=== PATIENT | female | born 1950 | race Caucasian/White ===

== ENCOUNTER → 2018-04-10 | Outpatient (CLI) | payer MEDICARE, OTHER ==
[~2018-04-10] MED LIST: ALBU90I INH; ALBU90OI INH; ALBU90OI6 INH; ALBU90OI61 INH; AMLO10 PO; ATOR20 PO; Amaryl2 MG PO; CALPHO600 PO; DICL25ER PO; DIPH25 PO; ERGO50000 PO; FISH1000 PO; FLUT110OIA INH; FURO40 PO; GEMF600 PO; LOSHYD PO; METF500C PO; METO50 PO; MULVITA PO; Naprosyn375 MG PO; OMEP20ER PO; PHENTERMINE PO; POTCHL10ER PO; Percocet 5-3251 EACH PO; ULTRA-LIGHT RO1 EACH MC; [UNRECOGNIZED DRUG - CODE] PO; [UNRECOGNIZED DRUG - OTHER] PO
== END ==
LOC: LAB 11:37 → LAB SHORT 11:37
DX: E78.5 Hyperlipidemia, unspecified (principal); E11.42 Type 2 diabetes mellitus with diabetic polyneuropathy; R11.0 Nausea; I10 Essential (primary) hypertension
CPT/HCPCS: 84484

== ENCOUNTER → 2019-05-10 | Outpatient (CLI) | payer MEDICARE, OTHER | END | disposition home or self-care (01) | LOC: LAB SHORT 14:41 → LAB 14:41 | DX: N39.0 Urinary tract infection, site not specified (principal) | CPT/HCPCS: 87077; 87086; 87186 ==

== ENCOUNTER → 2020-03-30 | Outpatient (CLI) | payer MEDICARE, OTHER ==
[2020-03-30 15:13] LABS: Alanine Aminotransfer (ALT/SGP 46 U/L (12-78); Albumin, Blood 3.6 g/dL (3.4-5.0); Albumin/Globulin Ratio 1.2 (0.8-1.8); Alk Phos 73 U/L (50-136); Anion Gap 4 mmol/L (6-16); Aspartate Aminotrans (AST/SGOT 32 U/L (12-37); Bilirubin, Total 0.6 mg/dL (0.1-1.0); Blood Urea Nitrogen 36 mg/dL (8-24); CHOL/HDL RATIO 3.5; CO2, Blood 31 mmol/L (21-32); Calcium, Blood 9.5 mg/dL (8.5-10.1); Chloride, Blood 105 mmol/L (98-108); Cholesterol 156 mg/dL (50-200); Creatinine, Blood 1.06 mg/dL (0.40-1.00); Glomerular Filtration Rate 55 (60-); Glucose, Blood 104 mg/dL (70-99); HDL Cholesterol 45 mg/dL (>39); LDL/HDL RATIO 1.6; Low Density Lipoprotein Chol 73 mg/dL (0-110); Potassium, Blood 4.7 mmol/L (3.5-5.5); Sodium, Blood 140 mmol/L (136-145); Total Protein, Blood 6.6 g/dL (6.4-8.2); Triglycerides 189 mg/dL (30-160); Very Low Density Lipoprot Chol 37 mg/dL (6-32)
== END | disposition home or self-care (01) ==
LOC: LAB 13:35 → LAB SHORT 13:35
PROVIDERS: Hospitalist
DX: E78.5 Hyperlipidemia, unspecified (principal); I10 Essential (primary) hypertension; E11.42 Type 2 diabetes mellitus with diabetic polyneuropathy
CPT/HCPCS: 80053; 80061; 82043; 83036

== ENCOUNTER → 2021-03-16 | Outpatient (CLI) | payer MEDICARE, OTHER | END | disposition home or self-care (01) | LOC: LAB SHORT 13:49 → LAB 13:49 | DX: E11.42 Type 2 diabetes mellitus with diabetic polyneuropathy (principal) | CPT/HCPCS: 82043 ==

== ENCOUNTER → 2022-04-19 | Outpatient (CLI) | payer MEDICARE, OTHER | END | disposition home or self-care (01) | LOC: LAB 10:00 → LAB SHORT 10:00 | DX: E11.42 Type 2 diabetes mellitus with diabetic polyneuropathy (principal) | CPT/HCPCS: 82043 ==

== ENCOUNTER → 2022-11-03 | Outpatient (CLI) | payer MEDICARE, OTHER ==
[2022-11-03 16:15] LABS: Bun/Creatinine Ratio 52.5 (12.0-20.0); Calcium, Blood 10.2 mg/dL (8.5-10.1); Creatinine, Blood 0.76 mg/dL (0.40-1.00); Potassium, Blood 4.6 mmol/L (3.5-5.5)
== END | disposition home or self-care (01) ==
LOC: LAB SHORT 12:00
PROVIDERS: Hospitalist
DX: E53.8 Deficiency of other specified B group vitamins (principal); I10 Essential (primary) hypertension
CPT/HCPCS: 80048; 82607

== ENCOUNTER → 2023-05-25 | Outpatient (CLI) | payer MEDICARE, BC ==
[2023-05-25 17:09] LABS: Anion Gap 2 mmol/L (6-16); Blood Urea Nitrogen 36 mg/dL (8-24); CHOL/HDL RATIO 2.8; CO2, Blood 33 mmol/L (21-32); Calcium, Blood 9.8 mg/dL (8.5-10.1); Chloride, Blood 105 mmol/L (98-108); Cholesterol 164 mg/dL (50-200); Glomerular Filtration Rate 68 (60-); Glucose, Blood 109 mg/dL (70-99); HDL Cholesterol 59 mg/dL (>39); LDL/HDL RATIO 1.2; Low Density Lipoprotein Chol 71 mg/dL (0-110); Potassium, Blood 4.6 mmol/L (3.5-5.5); Sodium, Blood 140 mmol/L (136-145); Triglycerides 171 mg/dL (30-160); Very Low Density Lipoprot Chol 34 mg/dL (6-32)
[2023-05-25 18:36] LABS: Creatinine, Urine Random 99.6 mg/dL (27.00-270.00); Microalb/Creat Ratio UR, Rand 70.482 mg/g (0.000-30.000); Microalbumin, Random Urine 70.2 mg/L (0.000-20.000)
== END ==
LOC: LAB SHORT 12:15 → LAB 12:15
PROVIDERS: Hospitalist
DX: E78.5 Hyperlipidemia, unspecified (principal); E11.69 Type 2 diabetes mellitus with other specified complication
CPT/HCPCS: 80048; 80061; 82043; 82570

== ENCOUNTER → 2023-09-05 | Outpatient (CLI) | payer MEDICARE, BC | END | disposition home or self-care (01) | LOC: LAB 14:02 → LAB SHORT 14:02 | DX: R31.9 Hematuria, unspecified (principal) | CPT/HCPCS: 87077; 87086; 87186 ==

== ENCOUNTER → 2023-10-10 | Outpatient (CLI) | payer MEDICARE, BC | END | disposition home or self-care (01) | LOC: LAB 17:31 → LAB SHORT 17:31 | DX: R31.9 Hematuria, unspecified (principal) | CPT/HCPCS: 87086; 87102; 87106 ==

== ENCOUNTER → 2023-12-26 | Outpatient (CLI) | payer MEDICARE, BC | LOC: LAB 13:39 → LAB SHORT 13:39 | DX: N39.41 Urge incontinence (principal) | CPT/HCPCS: 87077; 87086; 87186 ==

== ENCOUNTER → 2024-06-10 | Outpatient (CLI) | payer MEDICARE, BC | LOC: LAB 18:06 → LAB SHORT 18:06 | DX: N30.01 Acute cystitis with hematuria (principal) | CPT/HCPCS: 87077; 87086; 87186 ==

== ENCOUNTER → 2024-07-15 | Outpatient (CLI) | payer MEDICARE, BC | LOC: LAB 14:00 → LAB SHORT 14:00 | DX: N30.01 Acute cystitis with hematuria (principal) | CPT/HCPCS: 87077; 87086; 87186 ==

== ENCOUNTER → 2024-09-09 | Outpatient (CLI) | payer MEDICARE, BC | LOC: LAB 14:06 → LAB SHORT 14:06 | DX: N30.01 Acute cystitis with hematuria (principal) | CPT/HCPCS: 87077; 87086; 87186 ==

== ENCOUNTER → 2025-01-06 | Outpatient (CLI) | payer MEDICARE, BC | LOC: LAB 14:19 → LAB SHORT 14:19 | DX: R31.9 Hematuria, unspecified (principal) | CPT/HCPCS: 87086 ==